=== PATIENT | male | born 1960 | race Caucasian/White ===

== ENCOUNTER → 2017-03-06 | Outpatient (CLI) | payer BC ==
[~2017-03-06] MED LIST: ACC10 PO; ACETA; ASCAUNK PO; ASPCH81X PO; ATOR-22 PO; CLC100 PO; CMD2 PO; CYCL10TA6 PO; FISHOIL PO; FLXUNK PO; GABA-112 PO; GLC/500 PO; GLCSR500 PO; GLIM2TAB2 PO; HYDC25 PO; HYDR-4380 PO; HYDR12.55 PO; HYDROCO; MULT-506 PO; NAPR-1169 PO; NATE120T PO; OMEG1CAP71 PO; PRLSR20 PO; QUIN40TA18 PO; SITA100T3 PO; STARLIX PO; VERA240C2 PO; VERA240T20 PO; ZINC PO; ZINC1TAB PO
== END | disposition home or self-care (01) ==
LOC: C.RDSM 13:55
PROVIDERS: ATTEND Physical Medicine & Rehabilitation Sports Medicine
DX: M19.011 Primary osteoarthritis, right shoulder (principal); M25.561 Pain in right knee; M54.5 Low back pain

== ENCOUNTER → 2017-03-30 | Day surgery (SDC) | payer BC ==
[2017-03-17 10:31] VITALS: Ht 177.8 cm; Wt 109.1 kg
[~2017-03-30] VITALS: Ht 177.8 cm; Wt 109.1 kg
[~2017-03-30] MED LIST changes: -ACC10 PO; -ACETA; -CMD2 PO; -FISHOIL PO; -FLXUNK PO; -GLCSR500 PO; -HYDC25 PO; -HYDROCO; +IOPAMIDOL INJ 61% 15 ML VIAL ONE; +LIDOCAINE HCL 1% MPF 5 ML VIAL ONE; -NATE120T PO; +SODIUM CHLORIDE 0.9% INJ 10 ML VIAL ONE; -STARLIX PO; -VERA240T20 PO; -ZINC PO
--- NOTE | 2017-03-30 14:50 | History & Physical Bridge - SC ---
H&P Re-Evaluation Bridge Note: I have examined the patient, reviewed the History & Physical and in the interval since the performance of the History & Physical I have noted the following changes of clinical significance: No changes noted
[2017-03-30 15:16] VITALS: TEMP 37
--- NOTE | 2017-03-30 15:17 | Discharge Instructions ---
Discharge Instructions Date of Service Mar 30, 2017. Visit Reason for Visit: Lumbar Radiculopathy Discharge Discharge Diagnosis / Problem: left leg pain Discharge Goals Goal(s): Decrease discomfort, Improve function Medications Stopped Medications Name(s): aspirin and naproxen stopped. last dose on monday. Activity Recommendations Activity Limitations: resume your previous activity Anesthesia . Post Anesthesia Instructions: If you have had General Anesthesia or IV Sedation: * Do not drive today. * Resume driving when surgeon permits. * Do not make important decisions or sign legal documents today. * Call surgeon for: 1. Temperature elevations greater than 101 degrees F. 2. Uncontrollable pain. 3. Excessive bleeding. 4. Persistent nausea and vomiting. 5. Medication intolerance (nausea, vomiting or rash). * For nausea and vomiting use only clear liquids such as: tea, soda, bouillon until nausea subsides, then gradually increase diet as tolerated. * If you have any concerns or questions, call your surgeon's office. If physician is unavailable and it is an emergency, call 911 or go to the nearest emergency room. . Diet Recommendations Recommended Home Diet: resume previous diet Procedures Procedures Performed: Lumbar Epidural Steroid Injection Pending Studies Studies pending at discharge: no Medical Emergencies . Who to Call and When: Medical Emergencies: If at any time you feel your situation is an emergency, please call 911 immediately. . Non-Emergent Contact Non-Emergency issues call your: Specialist . . "Provider Documentation" section prepared by Rigoberto Chow. .
[2017-03-30 15:29] VITALS: BP 144/88; PULSE 71; O2SAT 97
--- NOTE | 2017-03-30 16:46 | OPERATIVE REPORT ---
DATE OF OPERATION: 03/30/2017 PREOPERATIVE DIAGNOSIS: L5-S1 foraminal stenosis with left lower extremity radiculopathy. POSTOPERATIVE DIAGNOSIS: Same. PROCEDURE: Left paramedian L5-S1 intralaminar epidural steroid injection under fluoroscopic guidance. INDICATIONS: The patient is a 56-year-old white male who has presented with a longstanding history of low back pain with recent exacerbation over a few months that has radiating down the left lower extremity following a classic radiculopathy. He has MRI imaging that reveals stenosis foraminally at L5-S1 and he presents today for an epidural injection to provide him with relief of ongoing radicular complaints. He does note that he was also started on gabapentin at the initial evaluation and this has helped his pain 30%-40%. PHYSICAL EXAMINATION: Pleasant male seated comfortably in no apparent distress. He has intact sensation distally. Negative seated straight leg raise on the right and positive on the left. He is without any focal weakness. CONSENT: Verbal and written consent was obtained from the patient. Risks and benefits were reviewed. Risks include, but are not limited to epidural hematoma, epidural abscess, allergic reaction, and dural puncture. The patient wishes to proceed. DESCRIPTION OF PROCEDURE: The patient was taken back to the special procedures room of the [facility], where he was maintained in a prone position. Backside was cleansed with Betadine x3 and a dry sterile dressing was applied. Fluoroscope was used to identify the L5-S1 intralaminar space. Overlying skin on the left side was anesthetized with 4 mL of lidocaine 1% with a 25-gauge 1.5-inch needle. A 22-gauge 4-1/4 inch Tuohy needle was then directed down towards the intralaminar space. It was advanced under lateral fluoroscopic guidance and loss of resistance was noted at a depth of just over 9 cm. Isovue-300 contrast 1 mL was injected, in which demonstrated epidural uptake pattern, which was confirmed with both AP and lateral views. He then underwent injection of Depo-Medrol 40 mg and 4 mL of preservative free sodium chloride, which caused a transient reproduction of familiar radicular sensation, which was transient down the leg. DISPOSITION: 1. The patient was taken out into the recovery area, where he will be discharged home once discharge criteria have been met. 2. Follow up in the [facility] office in 2-4 weeks. I attest to the content of the Intraoperative Record and any orders documented therein. Any exception s are noted below.
== END | disposition home or self-care (01) ==
LOC: X.SURG 13:59
PROVIDERS: ATTEND Physical Medicine & Rehabilitation
DX: M48.07 Spinal stenosis, lumbosacral region (principal)

== ENCOUNTER → 2017-11-13 | Outpatient (CLI) | payer BC ==
[~2017-11-13] MED LIST changes: -IOPAMIDOL INJ 61% 15 ML VIAL ONE; -LIDOCAINE HCL 1% MPF 5 ML VIAL ONE; -SODIUM CHLORIDE 0.9% INJ 10 ML VIAL ONE
== END | disposition home or self-care (01) ==
LOC: C.RDSM 14:47
PROVIDERS: ATTEND Physical Medicine & Rehabilitation Sports Medicine
DX: M19.011 Primary osteoarthritis, right shoulder (principal)

== ENCOUNTER 2019-04-17 06:16 | Inpatient (IN) ==
--- NOTE | 2019-03-25 14:17 | XRay Report ---
XR chest Pre-admission PA/Lat CLINICAL HISTORY: Preoperative evaluation. COMPARISON STUDY: Chest radiograph May 16, 2012. FINDINGS: Lung volumes are normal. There is no pneumothorax or pleural effusion. There is no consolid ation to suggest pneumonia. Minimal left basilar opacity is unchanged since exam of May 16, 2012 an d may reflect atelectasis or epicardial fat pad. Cardiac size is normal. No evidence for pulmonary ed carlos. IMPRESSION: No acute cardiopulmonary findings. Electronically signed by: Ck Christiansen M.D. 03/25/2019 2:16 PM
[2019-03-25 14:21] LABS: Basophils # (auto) 0.03 K/uL (0-0.2); Basophils % (auto) 0.3 %; Eosinophils % (auto) 4.3 %; Hematocrit (blood only) 41.3 % (42-52); Hemoglobin 13.9 g/dL (14.0-18.0); Immature Granulocytes # (auto) 0.03 K/uL (0.00-0.02); Immature Granulocytes % (auto) 0.3 %; Lymphocytes # (auto) 2.85 K/uL (1.2-3.4); Mean Corpuscular Hgb Conc 33.7 g/dL (32-36); Mean Corpuscular Volume 90.2 fL (80-100); Mean Platelet Volume 9.9 fL (7.4-10.4); Monocytes # (auto) 0.66 K/uL (0.11-0.59); Monocytes % (auto) 7.2 %; Neutrophils # (auto) 5.23 K/uL (1.4-6.5); Neutrophils % (auto) 56.9 %; Platelet Count 291 K/uL (130-400); RDW Coefficient of Variation 13.5 % (11.5-14.5); RDW Standard Deviation 44.4 fL (36.4-46.3); Red Blood Count 4.58 M/uL (4.7-6.1)
[2019-03-25 14:36] LABS: Appearance Urine Clear (Clear); Bacteria Urine Automated Negative (Negative); Bilirubin Urine Negative (Negative); Blood Urine Negative (Negative); Color Urine Dark Yellow; Glucose Urine UA Negative (Negative); Ketones Urine Negative (Negative); Leukocyte Esterase Urine Negative (Negative); Nitrite Urine Negative (Negative); Protein Urine Trace (Negative); RBC Urine Automated 0-4 /hpf (0-4); Specific Gravity Urine 1.031 (1.000-1.030); Urobilinogen Urine Negative (Negative)
[2019-03-25 14:42] LABS: INR 1.1 (0.9-1.1); Partial Thromboplastin Ratio 0.9; Partial Thromboplastin Time 25.3 Seconds (21.0-31.0); Prothrombin Time 10.8 Seconds (9.0-12.0)
[2019-03-25 16:27] LABS: BUN Creatinine Ratio 22.6 (10-20); Calcium 8.8 mg/dl (8.5-10.1); Creatinine Clr Calc Pharmacy 101.2 ml/min; Est GFR (African American) 93.9
--- NOTE | 2019-03-27 11:59 | Anesthesiology Consultation ---
Date of Service March 27, 2019 Assessment & Plan (1) Encounter for pre-operative examination: - No previous anesthesia records w/ intubation Chart Review Chart Review: Acceptable Risk for Surgery and Patient seen in Pre Admission Carey ting Consults Requested medical (Dr. Munoz) Patient had a PCP clearance request form filled out by PCP. Per this form, dated 04/01/19, patient is medically cleared for surgery. Per PCP note from that visit, "The patient is medically stable for his proposed procedure." Teaching & Discussion Pre-Anesthesia Teaching/Discussion Notes: Instructed NPO after midnight before surgery, except medications with 15 cc of water. Medication instructions provided according to the PAT guidelines. History Surgery Operation Date: 04/17/19 07:00 Proposed Procedures p Left Total Knee Arthroplasty - Shivam Tolentino MD Height/Weight Height: 5 ft 11 in Weight: 114.2 kg Allergies Allergy/AdvReac Type Severity Reaction Status Date / Time cephalexin Allergy Unknown hives Verified 03/22/19 13:11 Medications Home Medications Medication Instructions Recorded Confirmed Last Taken Januvia 100 mg PO QAM 01/24/19 03/22/19 01/28/19 09:00 ascorbic acid (vitamin C) [Vitamin 1,000 mg PO BID 01/24/19 03/22/19 01/28/19 09:00 C] aspirin 81 mg PO BID 01/24/19 03/22/19 01/24/19 atorvastatin 20 mg PO HS 01/24/19 03/22/19 01/28/19 09:00 cyclobenzaprine 10 mg PO TID PRN 01/24/19 03/22/19 01/28/19 09:00 docusate sodium 100 mg PO BID 01/24/19 03/22/19 01/28/19 09:00 gabapentin 300 mg PO TID 01/24/19 03/22/19 01/28/19 09:00 glimepiride 4 mg PO QAM 01/24/19 03/22/19 01/28/19 09:00 hydrochlorothiazide 12.5 mg PO QAM 01/24/19 03/22/19 01/28/19 09:00 hydrocodone-acetaminophen 1 tab PO Q6H PRN 01/24/19 03/22/19 01/28/19 09:00 metformin 1,000 mg PO BID 01/24/19 03/22/19 01/28/19 09:00 multivitamin 1 tab PO QAM 01/24/19 03/22/19 01/28/19 09:00 naproxen 500 mg PO BID PRN 01/24/19 03/22/19 01/24/19 omega 3,6,9 combination no.7 1 tab PO BID 01/24/19 03/22/19 01/28/19 09:00 omeprazole 20 mg PO QAM 01/24/19 03/22/19 01/28/19 09:00 quinapril 40 mg PO QAM 01/24/19 03/22/19 01/28/19 09:00 verapamil 240 mg PO QAM 01/24/19 03/22/19 01/28/19 09:00 zinc gluconate 50 mg PO HS 01/24/19 03/22/19 01/27/19 Victoza 2-Yvan 1.2 mg SUBDERMAL DAILY 01/28/19 03/22/19 01/28/19 09:00 Exercise / Class Metabolic Activity III < 4 Walking/Shop/Light housework (Walking/Shop/Light housework (Does do stretches every day). Light carpentry work occasionally. Can climb stairs with difficulty. Denies CP or SOB.) Past Anesthesia History No Hx of Anesthesia Complications and No Family Hx of Anesthesia Complications History of PONV No Hx of PONV and No Hx of Motion Sickness Social History Smoking Status: Never smoker Do You Dip or Chew Tobacco: Yes (1 can per day x 30 years (Advised)) Hx Alcohol Use: No Hx Substance Use: No Review of Systems Patient denies chest pain, shortness of breath, dyspnea on exertion, joint pain, reflux, cough, wheezing, palpitations. +Joint Pain (Back, Knee, Hips, Legs) +Acid Reflux (Controlled with omeprazole) Physical Exam Vital Signs BP: 126/80 P: 59 R: 16 T: 98.2 SPO2: 96% on RA Constitutional + obese ENMT Thyromental Distance: > or= 3.5 Finger Breadths (4) Mallampati Class: II Mouth / Teeth: 1. 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 Neck normal visual inspection and trachea midline Respiratory normal respiratory effort Auscultation: lungs clear to auscultation bilaterally Cardiovascular Rate/Rhythm: regular rate and regular rhythm Heart Sounds: no murmur Vessels: no carotid bruit Neurologic moves all extremities Psychiatric Orientation: alert and oriented x 3 Testing Laboratory Results 03/25/19 13:16 03/25/19 13:16 03/25/19 03/25/19 03/25/19 13:16 13:16 13:16 PT 10.8 INR 1.1 APTT 25.3 Urine Color Dark Yellow Urine Appearance Clear Urine pH 5.0 Ur Specific [place] 1.031 H Urine Protein Trace H Urine Glucose (UA) Negative Urine Ketones Negative Urine Nitrite Negative Ur Leukocyte Esterase Negative Urine WBC (Auto) 1-5 Urine RBC (Auto) 0-4 U Hyaline Cast (Auto) 1-5 U Epithel Cells (Auto) 5-10 H Urine Bacteria (Auto) Negative Blood Type A Positive Antibody Screen NEGATIVE HgBA1C - 8.3 (01/21/19 at [facility]) Electrocardiogram Date: 03/25/19 Findings: + SB @ (52) and + no change from (05/16/12) Chest X-Ray Date: 03/25/19 Findings: + NAD FINDINGS: Lung volumes are normal. There is no pneumothorax or pleural effusion. There is no consolidation to suggest pneumonia. Minimal left basilar opacity is unchanged since exam of May 16, 2012 and may reflect atelectasis or epicardial fat pad. Cardiac size is normal. No evidence for pulmonary edema. IMPRESSION: No acute cardiopulmonary findings.
--- NOTE | 2019-04-02 19:38 | History and Physical Report ---
DATE OF ADMISSION: 04/17/[address] Tolentino. CHIEF COMPLAINT: Left knee pain. HISTORY OF PRESENT ILLNESS: This 58-year-old white male presents to the office with complaints of left knee pain for several years. It has become worse with time. He notes no loss of motion. He states the pain is worse with weightbearing. It is affecting his ADLs. Occasional night pain. He recently went on a trip to [place] and was able to get around reasonably well but it did prevent him from doing some activities. He denies any instability. No effusions. He elects to proceed with left total knee arthroplasty in hopes of alleviating his pain. Preoperative imaging has been obtained. He has a history of right total hip arthroplasty and continues to do well with that. He also has a right knee replacement with good results. PAST MEDICAL HISTORY: Significant for hypertension, type 2 diabetes, elevated cholesterol, DJD, chronic low back pain, obesity, and kidney stones. 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 ALLERGIES: KNOWN ALLERGY TO KEFLEX. SOCIAL HISTORY: The patient is . No tobacco use, no ETOH use. Retired. CURRENT MEDICATIONS: Colace 100 mg p.o. daily p.r.n., cyclobenzaprine 10 mg p.o. b.i.d., gabapentin 400 mg p.o. t.i.d., HCTZ 12.5 mg p.o. daily, [place] 7.5 mg p.o. q.i.d. p.r.n., omeprazole 20 mg p.o. daily, scopolamine patch q. 72 hours p.r.n., Victoza 18 mg/3 mL subcutaneous solution, Voltaren 1% topical gel q.i.d. p.r.n. FAMILY HISTORY: Significant for heart disease, otherwise unremarkable. REVIEW OF SYSTEMS: A total of 10 systems are reviewed and are significant only for above stated conditions. PHYSICAL EXAMINATION: GENERAL: Well-developed, well-nourished middle aged obese white male in no acute distress. Sitting on a bed. Alert and oriented. SKIN: Warm and dry with good turgor. No rashes or lesions. HEENT: Normocephalic, atraumatic. Eyes: PERRLA, EOMI. Nares patent bilaterally without turbinate enlargement. Oropharynx without erythema or exudate. No lesions noted. Uvula midline. Oral mucosa moist. Partial upper denture plate noted. HEART: RRR. No MGR. LUNGS: Clear to auscultation bilaterally. No crackles, rhonchi or wheezing. Good air movement. ABDOMEN: Obese. Bowel sounds present x4, soft, nontender. No organomegaly. No masses. MUSCULOSKELETAL: Left knee has no obvious asymmetry or deformity. He lacks a few degrees of terminal extension. Flexion to greater than 100 degrees. Strength is 5/5 with good quad tone. There is focal discomfort with palpation over the medial and lateral joint lines. No peripatellar discomfort today. Varus stance. Stable collateral ligaments. No defect in the patellar tendon or quadriceps tendon. He is able to do a straight leg raise. Ambulatory with an antalgic gait using his cane. NEUROLOGIC: Cranial nerves II through XII are intact. Gross sensation is intact across both lower extremities by soft touch. Peripheral pulses are 2+. DATA: Radiographic imaging previously obtained in December shows a well fixed, well aligned knee replacement on the right. Advanced medial compartment degenerative joint disease on the left with varus positioning. Periarticular osteophytes and subchondral sclerosis are also evident. IMPRESSION: Left knee end-stage degenerative joint disease. PLAN: Postoperative prescriptions for Percocet and Coumadin will be provided at discharge from the hospital. Anticipate discharge to home with home health services. Preoperative lab work, EKG, and chest x-ray have been ordered. Medical clearance has been requested from his PCP, Dr. Munoz. The patient already has crutches and a cane. He also has a walker. Informed written consent will be obtained on the morning of surgery. WHITNEY
[~2019-04-17 06:16] MED LIST changes: -ASCAUNK PO; -ASPCH81X PO; -ATOR-22 PO; -CLC100 PO; -CYCL10TA6 PO; -GABA-112 PO; -GLC/500 PO; -GLIM2TAB2 PO; -HYDR-4380 PO; -HYDR12.55 PO; +LR 500ML BOLUS, THEN 15ML/HR IV SCH; +LR 60ML/HR IV SCH; -MULT-506 PO; -NAPR-1169 PO; -OMEG1CAP71 PO; -PRLSR20 PO; -QUIN40TA18 PO; +ROPIVACAINE 0.5% HCL/PF 150 MG, BUPIVACAINE 0.5% MPF 30 ML, EPINEPHrine 0.15 MG, Ketoro... INFIL SCH; +SCOPOLAMINE 1.5 MG TDSY TD SCH; -SITA100T3 PO; +TRANEXAMIC ACID 1,000 MG **IV Pre-op IV SCH; +VANCOMYCIN HCL 1,750 MG in SODIUM CHLORIDE 0.9% 500 ML IV SCH; -VERA240C2 PO; -ZINC1TAB PO
[2019-04-17] MEDS ORDERED: BUPIVACAINE 0.5 % 5 MG/1 ML PF 10ML VIAL ONE (06:32)
[2019-04-17] MEDS ORDERED: ROPIVACAINE 0.5% 5 MG/ML 30 ML VIAL ONE (06:32)
--- NOTE | 2019-04-17 06:36 | History & Physical Bridge Note ---
Date of Service April 17, 2019 History & Physical Bridge Note I have examined the patient, reviewed the History & Physical and in the interval since the performance of the History & Physical I have noted the following changes of clinical significance:consent obtained. no changes noted
[2019-04-17] MEDS ORDERED: MIDAZOLAM HCL 1 MG/ML 2ML VIAL ONE (08:35)
[2019-04-17] MEDS ORDERED: ORTHO JOINT ANESTHETIC ONE (08:38)
[2019-04-17] MEDS ORDERED: fentaNYL citrate 100 MCG/2 ML VIAL ONE ×2 (10:11)
[2019-04-17] MEDS ORDERED: VASOPRESSIN 20 UNIT/ML VIAL ONE (10:12)
[2019-04-17] MEDS ORDERED: ONDANSETRON INJ 2 MG/ML 2 ML VIAL ONE (10:12)
[2019-04-17] MEDS ORDERED: PHENYLEPHRINE 100MCG/ML 5ML SYR ONE (10:12)
[2019-04-17] MEDS ORDERED: PROPOFOL IV EMULSION 10 MG/ML 20 ML VIAL IV ONE (10:12)
[2019-04-17] MEDS ORDERED: ePHEDrine sulfate 50 MG/ML SYR ONE (10:12)
[2019-04-17] MEDS ORDERED: ePHEDrine sulfate 50 MG/ML AMP ONE (10:12)
[2019-04-17] MEDS ORDERED: KETOROLAC 30 MG/ML VIAL IV PRN (10:25)
[2019-04-17] MEDS ORDERED: ATROPINE SULFATE 0.1 MG/ML 10ML SYR IV PRN (10:25)
[2019-04-17] MEDS ORDERED: HYDROmorphone INJ 1 MG/ML SYRINGE IV PRN (10:25)
[2019-04-17] MEDS ORDERED: ePHEDrine sulfate 50 MG/ML AMP IV PRN (10:25)
[2019-04-17] MEDS ORDERED: ONDANSETRON INJ 2 MG/ML 2 ML VIAL IV PRN ×2 (10:25→11:58)
--- NOTE | 2019-04-17 10:28 | Post Operative Brief Note ---
Immediate Post Op Note v1 Date of Surgery April 17, 2019 Pre & Post Diagnosis Operation Date: 04/17/19 08:50 Pre-Op Diagnosis: Left Knee Degenerative Joint Disease Post-Op Diagnosis: Left Knee Degenerative Joint Disease Procedure Operation Date: 04/17/19 08:50 Actual Procedures p Left Total Knee Arthroplasty(Left) - Shivam Tolentino MD Surgeon Shivam Tolentino MD Employment Training Specialist [facility] Estimated Blood Loss 100 Findings Consistent with Post-Op Diagnosis
--- NOTE | 2019-04-17 10:36 | Operative Report ---
Post Operative Report Pre & Post Diagnosis Operation Date: 04/17/19 08:50 Pre-Op Diagnosis: Left Knee Degenerative Joint Disease Post-Op Diagnosis: Left Knee Degenerative Joint Disease Procedure Operation Date: 04/17/19 08:50 Actual Procedures p Left Total Knee Arthroplasty(Left) - Shivam Tolentino MD Surgeon SAHIL Tolentino MD Ophthalmology Assistant mechelle Estimated Blood Loss 100 Findings Consistent with Post-Op Diagnosis Specimens see operative report Drains none Complications none Disposition Accompanied Patient To Recovery: Yes Disposition: Recovery Room Indications This 59-year-old white male presented to the office with complaints of intractable left knee pain. He had tried conservative care measures without improvement. He previously had a right total knee arthroplasty and has done well with that. He elected to proceed with the same on the left. Preoperative imaging has been obtained. Description of Procedure Patient was administered a spinal anesthetic and then taken to the operating room where he was given sedation. He was prepped and draped in the usual sterile fashion. Please see Dr. Tolentino's operative report for specifics of the procedure. I was present for the entire case from initial patient positioning through final wound closure. Assistance was provided in tissue retraction, hemostasis, trial implant placement, final implant placement, and final wound closure. Patient was taken to the recovery room in satisfactory condition. I attest to the content of the Intraoperative Record and any orders documented therein. Any exceptions are noted below.
--- NOTE | 2019-04-17 10:39 | Operative Report ---
DATE OF OPERATION: 04/17/2019 SURGEON: Shivam Tolentino MD PHYSICIAN SPECIALIST: Malik Joyner PA-C. No resident or fellow available. PREOPERATIVE DIAGNOSIS: Osteoarthritis with varus deformity, left knee. POSTOPERATIVE DIAGNOSIS: Osteoarthritis with varus deformity, left knee. OPERATION PERFORMED: Cemented left total knee replacement. PERIOPERATIVE SITUATION: Medically cleared male who has had intractable knee pain, has failed conservative management for well over a decade. At this point in time, wants to proceed with surgical treatment, his right knee done about a decade ago. He understands the risks and consequences. DESCRIPTION OF PROCEDURE: The patient appropriately identified, site verified, consent verified. Antibiotics confirmed as being given. The left lower extremity was prepped and draped in the usual routine fashion. Tourniquet inflated to 300 mmHg after exsanguination of the limb with a rubber Esmarch bandage for a total of 49 minutes. Midline exposure was utilized. Parapatellar arthrotomy performed. Synovectomy completed, osteophytes resected. Distal femur then entered. Cruciates resected. Tibia subluxated. Menisci resected. Distal femur cut 12 mm, proximal tibia 4 mm, the extension gap was excellent. Femur was then sized to a 4, appropriate cutting block applied and the anterior and posterior condylar and chamfer cuts made. The flexion gap was excellent. The box cut was then made. The size 4 narrow fit well. The tibia was then broached and reamed to a size 4 and trial spacing between a 10 and a 12.5. The 10 was picked due to better extension, but no change in the flexion gap instability. The patella was then sized to a 41, it was resected leaving 16 mm, the seating holes made and the trial tracked well. Orthomix was then injected into the knee, prior to that, 2 injections were placed posteriorly, prior to inserting the implants. The wound was then irrigated with Betadine and Pulsavac. The permanents were then cemented into position, the tibia followed by femur followed by patella, after 12 minutes, the tourniquet deflated. Minor bleeding points controlled with electrocautery. After 14 minutes, the knee flexed. No cement removal was required. The knee was irrigated with Betadine and then the knee reduced with the permanent spacer and then closed with #2 Vicryl, 2-0 Vicryl and stainless steel clips. Appropriate dressing applied. The patient transferred to recovery room in satisfactory condition, having tolerated the procedure well. Pathology pending on bone. DVT prophylaxis with Coumadin. ESTIMATED BLOOD LOSS: 100 mL. SUMMARY OF IMPLANTS: Size 4 posterior cruciate substituting narrow femur, size 4 rotating tibial platform tray, size 4 spacer, 10 mm thick posterior cruciate substituting oval domed 3 pegged patella size 41 and 2 bags of Pal[place]os G cement. I attest to the content of the Intraoperative Record and any orders documented therein. Any exception s are noted below.
[2019-04-17] MEDS ORDERED: NovoLIN-R INSULIN PER UNIT CHARGE ONE (10:42)
--- NOTE | 2019-04-17 10:58 | XRay Report ---
XR knee LT 2V routine HISTORY: 59 years-old Male Surgical Post Op left knee total joint arthroplasty. History of degenerat ajay joint disease. COMPARISON: [Knee radiographs 06/30/2015 TECHNIQUE: 2 views of the left knee FINDINGS: Left knee total joint arthroplasty and patella resurfacing demonstrates satisfactory alignment. Anter ior midline skin yasmin are noted along with expected postsurgical soft tissue swelling and deep tis vicente air with surgical drainage catheter. No acute fracture or retained foreign body. IMPRESSION: Satisfactory alignment of left knee total joint arthroplasty. The above report was generated using voice recognition software. It may contain grammatical, syntax o r spelling errors. Electronically signed by: Jayme Walsh M.D. 04/17/2019 10:56 AM
--- NOTE | 2019-04-17 11:02 | Orthopedic Progress Note ---
Date of Service April 17, 2019 Subjective Patient patient is doing well has no major issues. Denies chest pain shortness of breath fever chills nausea vomiting headache. Has some shoulder pain but he has arthritis there. Physical Exam Physical Exam: Neurovascular check is limited by spinal femoral nerve history section. Knee is located postop x-rays look excellent. Results & Data Vital Signs (Past 12 Hours) Vital Signs Temp Pulse Resp BP Pulse Ox 04/17/19 10:55 81 15 113/61 97 04/17/19 10:45 84 16 132/88 98 04/17/19 10:35 36.5 C 81 14 101/82 96 04/17/19 06:46 37.1 C 79 16 142/108 H 95
[2019-04-17] MEDS ORDERED: NovoLIN-R INSULIN PER UNIT CHARGE IV STA (11:05)
[2019-04-17] MEDS ORDERED: METOCLOPRAMIDE HCL INJ 5 MG/ML 2 ML VIAL IV PRN (11:58)
[2019-04-17] MEDS ORDERED: HYDROmorphone INJ 0.5 MG/0.5 ML SYR IV PRN (11:58)
[2019-04-17] MEDS ORDERED: VANCOMYCIN CONSULT ACTIVE PRN (11:58)
[2019-04-17] MEDS ORDERED: CYCLOBENZAPRINE HCL 10 MG TAB PO PRN (11:58)
[2019-04-17] MEDS ORDERED: NALOXONE HCL 0.4 MG/1 ML VIAL/CARP IV PRN (11:58)
[2019-04-17] MEDS ORDERED: MAGNESIUM HYDROXIDE SUSP 30 ML UDC PO PRN (11:58)
[2019-04-17] MEDS ORDERED: TAMSULOSIN HCL 0.4 MG CAP PO PRN (11:58)
[2019-04-17] MEDS ORDERED: PHARMACY GLYCEMIC MGMT CONSULT STA (11:58)
[2019-04-17] MEDS ORDERED: DiphenhydrAMINE HCL 50 MG/ML VIAL IV PRN (11:58)
[2019-04-17] MEDS ORDERED: ALUMINUM/MAGNESIUM SUSP 30 ML UDC PO PRN (11:58)
[2019-04-17] MEDS ORDERED: BISACODYL 10 MG SUPP PR PRN (11:58)
--- NOTE | 2019-04-17 11:58 | Anesthesiology Progress Note ---
Date of Service April 17, 2019 Anesthesia Post Procedure Vital Signs Vital Signs: Temp Pulse Resp BP Pulse Ox 04/17/19 11:17 37.3 C 83 17 119/68 99 04/17/19 11:05 82 18 123/63 97 04/17/19 10:55 81 15 113/61 97 04/17/19 10:45 84 16 132/88 98 04/17/19 10:35 36.5 C 81 14 101/82 96 04/17/19 06:46 37.1 C 79 16 142/108 H 95 Pain Intensity Generalized: Pain Intensity: 2 Transfer of Care Handoff Completed per policy Notes Mental Status: alert / awake / arousable Patient Amnestic to Procedure: Yes Nausea / Vomiting: adequately controlled Pain: adequately controlled Airway Patency, RR, SpO2: stable & adequate BP & HR: stable & adequate Hydration State: stable & adequate Neuraxial Anesthesia: was administered and sensory block is resolving Anesthetic Complications: no major complications apparent
[2019-04-17] MEDS: SODIUM CHLORIDE 0.9% 1000ML 1,000 ML IV SCH ×2 (12:13→20:45)
[2019-04-17] MEDS: INSULIN ASPART 100 UNITS/ML 3 ML PEN SC SCH ×3 (12:50→20:49)
[2019-04-17] MEDS ORDERED: INSULIN HUMAN NPH SC STA (13:32)
[2019-04-17] MEDS ORDERED: GABAPENTIN 400 MG CAP PO STA (13:36)
[2019-04-17] MEDS ORDERED: PHARMACY GLYCEMIC MGMT CONSULT PRN (13:45)
--- NOTE | 2019-04-17 13:57 | Pharmacy Report ---
Glycemic Control Consultation - Date of Service April 17, 2019 - Scope Scope: Glycemic Pharmacist consulted by Dr Joyner on 04/17/19 for glycemic control and to write orders per [facility] inpatient glycemic control protocol - Objective Weight: 112 kg Accuchecks BSG (last 24hrs): 04/17/19 04/17/19 04/17/19 06:47 10:38 11:24 POC Glucose 212 H 286 H 249 H - Recent Pertinent Medications Outpatient Anti-diabetic Regimen: * Glimepiride, Metformin, Januvia, Victoza - Assessment & Plan Assessment & Plan: ASSESSMENT: * Mr. Shankar is a 59yo M unknown to the pharmacy glycemic service. He is POD: 0 L TKA. PMHx: consistent with DM-II, HLD, Obesity. He is maintained on PO medications as an outpt. I was not able to obtain an A1C, there is one ordered for tomorrow. He endorses an A1C >9% * No perioperative steroids were given. There is DXM 8mg IV X1 tomorrow with breakfast. Post-op BSGs >200. PLAN FOR INPATIENT GLYCEMIC CONTROL: * Holding outpatient oral diabetes medications * Basal insulin * NPH 25 units STAT. Then there will be an NPH scale for HS tonight, please see MAR for further details. * Bolus insulin * NovoLog per scale ACHS or Q6hrs while NPO * Goal Range: Low 120 mg/dL - High 160 mg/dL * Correction Factor: 15 mg/dL/unit * Nutritional / Prandial insulin per carb ratio of 1 unit per 5 grams CHO consumed * Will add a 0000 check * Please note that the plan above was derived based on current level of insulin resistance and hospital stress. These recommendations are appropriate for inpatient admission only. Plan of care upon discharge will need to be reassessed to avoid potential outpatient hypo/hyperglycemia. Thank you.
[2019-04-17] MEDS ORDERED: GABAPENTIN 300 MG CAP PO SCH (14:00)
[2019-04-17] MEDS ORDERED: ORTHO WARFARIN NOMOGRAM SCH (14:00)
[2019-04-17] MEDS: ACETAMINOPHEN 500 MG TAB PO SCH ×2 (14:04→20:47)
[2019-04-17] MEDS: KETOROLAC 30 MG/ML VIAL IV SCH ×2 (14:09→20:04)
[2019-04-17] MEDS ORDERED: WARFARIN SOD 5 MG TAB PO SCH (16:00)
[2019-04-17] MEDS ORDERED: CHECK SCOPOLAMINE PATCH PLACEMENT SCH (16:00)
[2019-04-17] MEDS ORDERED: TRANEXAMIC ACID 1,000 MG in 0.9 % SODIUM CHLORIDE 100 ML IV SCH (17:00)
[2019-04-17] MEDS: FERROUS GLUCONATE 324 MG TAB PO SCH (17:43)
[2019-04-17] MEDS ORDERED: VANCOMYCIN HCL 1,750 MG in SODIUM CHLORIDE 0.9% 500 ML IV SCH (18:00)
[2019-04-17] MEDS: DOCUSATE SODIUM 100 MG CAP PO SCH (20:05)
[2019-04-17] MEDS: GABAPENTIN 400 MG CAP PO SCH (20:06)
[2019-04-17] MEDS: ASPIRIN 81 MG ECTAB PO SCH (20:07)
[2019-04-17] MEDS ORDERED: DOCUSATE SODIUM 100 MG CAP PO SCH (21:00)
[2019-04-17] MEDS ORDERED: INSULIN HUMAN NPH SC ONE (21:00)
[2019-04-17] MEDS ORDERED: NON-FORMULARY MEDICATION (Zinc Gluconate 50 MG) PO SCH (21:00)
[2019-04-17] MEDS ORDERED: SENNA 8.6 MG TAB PO SCH (21:00)
[2019-04-17] MEDS ORDERED: ATORVASTATIN 20 MG TAB PO SCH (21:00)
[2019-04-17 22:29] VITALS: O2SAT 96
[2019-04-18] MEDS ORDERED: INSULIN ASPART 100 UNITS/ML 3 ML PEN SC ONE
[2019-04-18] MEDS: KETOROLAC 30 MG/ML VIAL IV SCH ×2 (01:42→07:57)
[2019-04-18] MEDS: OXYCODONE HCL IR 5 MG TAB (IMMEDIATE RELEASE) PO PRN ×2 (03:36→11:09)
[2019-04-18] MEDS: ACETAMINOPHEN 500 MG TAB PO SCH (06:23)
[2019-04-18 06:40] LABS: Hematocrit (blood only) 33.6 % (42-52); Hemoglobin 11.3 g/dL (14.0-18.0); Mean Corpuscular Hgb Conc 33.6 g/dL (32-36); Mean Corpuscular Volume 91.1 fL (80-100); Mean Platelet Volume 9.9 fL (7.4-10.4); Platelet Count 245 K/uL (130-400); RDW Coefficient of Variation 13.5 % (11.5-14.5); RDW Standard Deviation 44.9 fL (36.4-46.3); Red Blood Count 3.69 M/uL (4.7-6.1); White Blood Count 13.92 K/uL (4.8-10.8)
[2019-04-18 06:57] VITALS: BP 163/78; TEMP 98.4
[2019-04-18 07:13] LABS: BUN Creatinine Ratio 22.1 (10-20); Creatinine Clr Calc Pharmacy 81.9 ml/min; Est GFR (African American) 74.2; Potassium 4.6 mmol/L (3.5-5.1)
--- NOTE | 2019-04-18 07:27 | Progress Note ---
DATE: 04/18/2019 SUBJECTIVE: Postop day #1 status post left total knee replacement. The patient is doing well. Denies chest pain, shortness of breath, fever, chills, nausea, vomiting, or headache. OBJECTIVE: Vital signs are stable. He is afebrile. Neurovascular check femoral sciatic nerve is normal. Wound dressing is changed, clean, dry and intact. Can do straight leg raise. Flexes easily to 90 degrees. Hematocrit stable at 33.6. Glucose is in the mid 250 ranges. Calcium is normal. INR is pending. ASSESSMENT: Overall, doing well. Continue with postop care pathway. Discharge to home today. Coumadin dose per nomogram today. Discharge on 4 mg if INR is less than 1.5. Repeat INR on Monday. Case management arrangement.
[2019-04-18 07:28] LABS: INR 1.2 (0.9-1.1); Prothrombin Time 11.8 Seconds (9.0-12.0)
--- NOTE | 2019-04-18 07:30 | Discharge Summary ---
CHIEF COMPLAINT: Left knee pain. HISTORY OF PRESENT ILLNESS: The patient underwent elective left total knee replacement. Hospital course has been uneventful. He is mobilizing well. He has no major issues. Denies chest pain, shortness of breath, fever, chills, nausea, vomiting or headache. PAST MEDICAL HISTORY: Remarkable for hypertension, type 2 diabetes, elevated cholesterol, DJD, chronic low back pain, obesity and kidney stones. PAST SURGICAL HISTORY: Remarkable for knee replacement, bilateral knee arthroscopies, herniorrhaphy, sinus tumor resection, bowel surgery, right total hip replacement, carpal tunnel release. ALLERGIES: KEFLEX. SOCIAL HISTORY: Reveals he is . No tobacco or alcohol use. PREOPERATIVE MEDICATIONS: Include Colace, cyclobenzaprine, gabapentin, hydrochlorothiazide, Bradford, omeprazole, scopolamine patch, Victoza, Voltaren topical gel. He will discontinue the Voltaren topical gel around his knee, can use it elsewhere. He will be discharged on some Vicodin. Please see prescription. Discharge on Coumadin 4 mg. Keep INR 1.8-2.2. FAMILY HISTORY: Remarkable for heart disease, otherwise unremarkable. REVIEW OF SYSTEMS: Noncontributory. ASSESSMENT: Overall, doing well status post left total knee replacement, discharge to home today. Follow up in 2 weeks.
[2019-04-18] MEDS ORDERED: PERCOCET 5/325MG HOMEPACK PO ONE (07:37)
[2019-04-18] MEDS ORDERED: INSULIN HUMAN NPH SC SCH (08:00)
[2019-04-18] MEDS ORDERED: dexAMETHasone 8 MG in SYRINGE 0 ML IV SCH (08:00)
[2019-04-18] MEDS: GABAPENTIN 400 MG CAP PO SCH (08:50)
[2019-04-18] MEDS: ASPIRIN 81 MG ECTAB PO SCH (08:51)
[2019-04-18] MEDS: DOCUSATE SODIUM 100 MG CAP PO SCH (08:51)
[2019-04-18] MEDS: INSULIN ASPART 100 UNITS/ML 3 ML PEN SC SCH (08:55)
[2019-04-18] MEDS ORDERED: METFORMIN HCL 850 MG TAB PO SCH (09:00)
[2019-04-18] MEDS ORDERED: PANTOprazole 40 MG TAB PO SCH (09:00)
[2019-04-18] MEDS ORDERED: WARFARIN SOD 5 MG TAB PO SCH (09:00)
[2019-04-18] MEDS ORDERED: MULTIVITAMIN TAB PO SCH (09:00)
[2019-04-18] MEDS ORDERED: ENALAPRIL MALEATE 10 MG TAB PO SCH (09:00)
[2019-04-18] MEDS ORDERED: hydroCHLOROthiazide 25 MG TAB PO SCH (09:00)
[2019-04-18] MEDS ORDERED: GLIMEPIRIDE 2 MG TAB PO SCH (09:00)
[2019-04-18] MEDS ORDERED: VERAPAMIL HCL 240 MG TABCR PO SCH (09:00)
[2019-04-18] MEDS: FERROUS GLUCONATE 324 MG TAB PO SCH (09:01)
[2019-04-18 09:18] VITALS: PULSE 86
[2019-04-19 07:10] LABS: Estimated Average Glucose 226 mg/dl; Hemoglobin A1C 9.5 % (4.5-5.6)
== END 2019-04-18 11:30 | disposition home or self-care (01) | DRG 470 ==
LOC: ASU 06:16 → 3E 10:41
DX: Z96.651 Presence of right artificial knee joint; Z68.34 Body mass index [BMI] 34.0-34.9, adult; G89.29 Other chronic pain; E11.9 Type 2 diabetes mellitus without complications; I10 Essential (primary) hypertension; M17.12 Unilateral primary osteoarthritis, left knee; Z82.49 Family history of ischemic heart disease and other diseases of the circulatory system; E66.9 Obesity, unspecified

== ENCOUNTER 2023-03-14 05:20 | Observation (INO) ==
--- NOTE | 2023-02-09 14:11 | PAT Medication Instructions ---
Medication Instructions Date of Service February 09, 2023 Home Medications ascorbic acid (vitamin C) 1,000 mg tablet (Vitamin C) 1,000 mg PO BID aspirin 81 mg tablet,delayed release 81 mg PO BID atorvastatin 20 mg tablet 20 mg PO HS cyclobenzaprine 10 mg tablet 10 mg PO TID PRN Spasms docusate sodium 100 mg tablet 100 mg PO BID hydrochlorothiazide 12.5 mg capsule 12.5 mg PO QAM metformin 1,000 mg tablet 1,000 mg PO BID multivitamin 1 tab PO QAM omeprazole 20 mg capsule,delayed release 20 mg PO QAM verapamil 240 mg 24 hr capsule,extended release 240 mg PO QAM zinc gluconate 50 mg tablet 50 mg PO HS hydrocodone 7.5 mg-acetaminophen 300 mg tablet 1 tab PO TID PRN Pain celecoxib 200 mg capsule 200 mg PO BID PRN Pain gabapentin 400 mg capsule 400 mg PO TID insulin aspart U-100 100 unit/mL (3 mL) subcutaneous pen (Novolog FlexPen U-100 Insulin aspart) 20 unit subcut TID insulin glargine 100 unit/mL subcutaneous solution (Lantus U-100 Insulin) 35 unit subcut QAM benazepril 40 mg tablet 40 mg PO QAM ASK your surgeon for instructions celecoxib 200 mg capsule 200 mg PO BID PRN Pain ASK your prescriber and surgeon aspirin 81 mg tablet,delayed release 81 mg PO BID DO NOT take the morning of surgery ascorbic acid (vitamin C) 1,000 mg tablet (Vitamin C) 1,000 mg PO BID cyclobenzaprine 10 mg tablet 10 mg PO TID PRN Spasms docusate sodium 100 mg tablet 100 mg PO BID hydrochlorothiazide 12.5 mg capsule 12.5 mg PO QAM metformin 1,000 mg tablet 1,000 mg PO BID multivitamin 1 tab PO QAM insulin aspart U-100 100 unit/mL (3 mL) subcutaneous pen (Novolog FlexPen U-100 Insulin aspart) 20 unit subcut TID benazepril 40 mg tablet 40 mg PO QAM Take morning of surgery With a small sip of water, OTHERWISE NOTHING TO EAT OR DRINK AFTER MIDNIGHT: omeprazole 20 mg capsule,delayed release 20 mg PO QAM verapamil 240 mg 24 hr capsule,extended release 240 mg PO QAM hydrocodone 7.5 mg-acetaminophen 300 mg tablet 1 tab PO TID PRN Pain (if needed) gabapentin 400 mg capsule 400 mg PO TID Take evening before surgery ascorbic acid (vitamin C) 1,000 mg tablet (Vitamin C) 1,000 mg PO BID atorvastatin 20 mg tablet 20 mg PO HS cyclobenzaprine 10 mg tablet 10 mg PO TID PRN Spasms (if needed) docusate sodium 100 mg tablet 100 mg PO BID metformin 1,000 mg tablet 1,000 mg PO BID zinc gluconate 50 mg tablet 50 mg PO HS hydrocodone 7.5 mg-acetaminophen 300 mg tablet 1 tab PO TID PRN Pain (if needed) gabapentin 400 mg capsule 400 mg PO TID insulin aspart U-100 100 unit/mL (3 mL) subcutaneous pen (Novolog FlexPen U-100 Insulin aspart) 20 unit subcut TID Insulin Dependent Diabetic Patients * Test your blood sugar the morning of surgery * If Blood Sugar is GREATER THAN 150, take HALF of your regular dose of: insulin glargine 100 unit/mL subcutaneous solution (Lantus U-100 Insulin) take 17 units * If Blood Sugar is LESS THAN 150, DO NOT TAKE ANY: insulin glargine 100 unit/mL subcutaneous solution (Lantus U-100 Insulin) Other Notes If you have any questions please call us at [phone] or [phone] or [phone] or [phone]
--- NOTE | 2023-02-16 15:13 | Anesthesiology Consultation ---
Date of Service February 16, 2023 Assessment & Plan (1) Encounter for pre-operative examination: - Check BSG AM DOS - COVID screening: Per assessment on 02/16: No known COVID-19 positive contacts or current COVID-19 related symptoms. Travel screen negative. Patient vaccinated. At surgeon discretion if preop Covid testing being done. - Outpatient joint assessment: Pt currently scheduled for inpatient pathway. If surgeon requests review for outpatient joint pathway, patient is not recommended candidate for outpatient joint program from anesthesia standpoint. - PCP note (12/13/22): "YES" patient medically cleared for surgery Chart Review Chart Review: Acceptable Risk for Surgery and Patient seen in Pre Admission Testing Teaching & Discussion Pre-Anesthesia Teaching/Discussion Notes: Instructed NPO after midnight before surgery,except medications with 15 cc of water. Medication instructions provided according to the PAT guidelines. History Surgery Operation Date: 03/14/23 07:15 Proposed Procedures p Left Hip Arthroplasty - Shivam Tolentino MD Height/Weight Height: 5 ft 10 in Weight: 117.934 kg Allergies Allergy/AdvReac Type Severity Reaction Status Date / Time cephalexin Allergy Intermediate hives Verified 02/09/23 11:44 Medications Home Medications Medication Instructions Recorded Confirmed Last Taken ascorbic acid (vitamin C) 1,000 mg 1,000 mg PO BID 01/24/19 02/09/23 11/24/22 tablet (Vitamin C) aspirin 81 mg tablet,delayed 81 mg PO BID 01/24/19 02/09/23 06/16/20 release atorvastatin 20 mg tablet 20 mg PO HS 01/24/19 02/09/23 11/23/22 cyclobenzaprine 10 mg tablet 10 mg PO TID PRN Spasms 01/24/19 02/09/23 11/24/22 docusate sodium 100 mg tablet 100 mg PO BID 01/24/19 02/09/23 11/24/22 hydrochlorothiazide 12.5 mg capsule 12.5 mg PO QAM 01/24/19 02/09/23 11/24/22 metformin 1,000 mg tablet 1,000 mg PO BID 01/24/19 02/09/23 11/24/22 multivitamin 1 tab PO QAM 01/24/19 02/09/23 11/24/22 omeprazole 20 mg capsule,delayed 20 mg PO QAM 01/24/19 02/09/2311/24/23 release verapamil 240 mg 24 hr 240 mg PO QAM 01/24/19 02/09/23 11/24/22 capsule,extended release zinc gluconate 50 mg tablet 50 mg PO HS 01/24/19 02/09/23 11/23/22 hydrocodone 7.5 mg-acetaminophen 1 tab PO TID PRN Pain 09/02/20 02/09/23 11/24/22 300 mg tablet celecoxib 200 mg capsule 200 mg PO BID PRN Pain 11/22/22 02/09/23 11/24/22 gabapentin 400 mg capsule 400 mg PO TID 11/22/22 02/09/23 11/24/22 insulin aspart U-100 100 unit/mL 20 unit subcut TID 11/22/22 02/09/23 11/24/22 (3 mL) subcutaneous pen (Novolog FlexPen U-100 Insulin aspart) insulin glargine 100 unit/mL 35 unit subcut QAM 11/22/22 02/09/23 11/24/22 subcutaneous solution (Lantus U-100 Insulin) benazepril 40 mg tablet 40 mg PO QAM 02/09/23 02/09/23 Unknown Past Medical History Medical History Chronic back pain LLE (lumbar herniated discs with spinal stenosis) Diabetes mellitus, type 2 IDDM GERD (gastroesophageal reflux disease) History of COVID- Early 2021 History of intestinal obstruction 2/2 adhesions Hyperlipidemia Hypertension Obesity Osteoarthritis Exercise / Class Metabolic Activity III < 4 Walking/Shop/Light housework Past Family History Family History Brother Family history of diabetes mellitus Father Family history of diabetes mellitus Mother Family history of diabetes mellitus Past Surgical History Surgical History H/O umbilical hernia repair History of arthroscopic knee surgery Multiple History of carpal tunnel release R/L History of right hip replacement History of surgery 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") No ROM limitations per patient, does have implant issues opening or closing jaw - does have implant in place on left side of mouth due to opening in roof of mouth History of surgery lysis of abdominal adhesions History of total knee replacement R/L PONV (postoperative nausea and vomiting) Past Anesthesia History No Hx of Anesthesia Complications (except PONV) and No Family Hx of Anesthesia Complications History of PONV No Hx of Motion Sickness and History of PONV Social History Smoking Status: Never smoker tobacco type: smokeless tobacco Do You Dip or Chew Tobacco: Yes (Daily- advised none DOS) Hx Alcohol Use: No Hx Substance Use: No substance use type: does not use Review of Systems Patient denies chest pain, shortness of breath, reflux, cough, wheezing, palpitations. Physical Exam Vital Signs VITALS BP 133/82 P 59 TEMP 98.4 SP02 98%RA RESP 16 PHYSICAL Full neck and c-spine range of motion. Full TMJ range of motion. TMD 3 finger breaths Mallampati Score 1 Dentition: removable plate with teeth + plate for previous jaw surgery for sinus tumor resection (residual palate defect) Lungs: clear throughout to auscultation Cardiac: regular rate and rhythm, no murmurs noted Spine: normal Carotid arteries: negative bruit Extremities: no edema Lab Results Anesthesia Preop Results Results Anesthesia Widget: WBC 10.36 K/ul (4.8-10.8) 02/16/23 Hgb 13.7 g/dl (14.0-18.0) L 02/16/23 Hct 40.4 % (42.0-52.0) L 02/16/23 Plt 298 K/uL (130-400) 02/16/23 Na 138 mmol/L (136-145) 02/16/23 K 4.5 mmol/L (3.5-5.1) 02/16/23 Cl 105 mmol/L (98-107) 02/16/23 CO2 25 mmol/L (21-32) 02/16/23 BUN 27 mg/dl (6-23) H 02/16/23 Creat 1.11 mg/dl (0.6-1.4) 02/16/23 Glucose Level 198 mg/dl (70-99(Fasting)) H 02/16/23 PT 11.4 Seconds (9.0-12.0) 02/16/23 PTT 24.7 Seconds (21.0-31.0) 02/16/23 INR 1.0 (0.9-1.1) 02/16/23 HA1c 9.2 % (4.5-5.6) H 02/16/23 Urine Color Dark Yellow 02/16/23 Urine Appearance Clear (Clear) 02/16/23 Urine pH 5.0 (4.5-7.5) 02/16/23 Urine Specific [place] 1.029 (1.000-1.030) 02/16/23 Urine Protein 2+ (Negative) H 02/16/23 Urine Glucose (UA) Negative (Negative) 02/16/23 Urine Ketones Trace (Negative) H 02/16/23 Urine Blood Negative (Negative) 02/16/23 Urine Nitrite Negative (Negative) 02/16/23 Urine Bilirubin Negative (Negative) 02/16/23 Urine Urobilinogen Negative (Negative) 02/16/23 Urine Leukocyte Esterase Negative (Negative) 02/16/23 Urine WBC (Auto) 1-5 /hpf (0-5) 02/16/23 Urine RBC (Auto) 0-4 /hpf (0-4) 02/16/23 Urine Hyaline Casts (Auto) 5-10 /lpf (0-5) H 02/16/23 Urine Epithelial Cells (Auto) 10-20 /lpf (0-5) H 02/16/23 Urine Bacteria (Auto) Negative (Negative) 02/16/23 Blood Type A Positive 02/16/23 Antibody Screen NEGATIVE 02/16/23 Testing Laboratory Results Surgeon's office made aware of elevated A1C* Electrocardiogram Date: 02/17/23 NSR at 60bpm. Chest X-Ray Date: 02/16/23 FINDINGS: PA and lateral chest radiographs are compared to study dated 09/04/2020. The heart is enlarged. The pulmonary vasculature is noncongested. There is mild bibasilar scarring/atelectasis. Scattered calcified granulomas are observed. The lungs and pleural spaces are otherwise clear. There is no pneumothorax. The bony thorax appears intact. Arthritic change is seen in the shoulders and spine. IMPRESSION: Mild cardiomegaly with no active disease in the chest. COVID-19 Risk Screen Screening Information COVID-19 Screen Date: 02/16/23 Exposure 21 Days Family/Household +COVID Last 21 Days: No Exposure 10 Days Any COVID Exposure Last 10 Days: No Symptoms Last 10 Days Experienced COVID Sx Last 10 Days: No + COVID 0-90 Days COVID + in Last 0-90 Days: No
[~2023-03-14 05:20] MED LIST changes: -LR 500ML BOLUS, THEN 15ML/HR IV SCH; -LR 60ML/HR IV SCH; -ROPIVACAINE 0.5% HCL/PF 150 MG, BUPIVACAINE 0.5% MPF 30 ML, EPINEPHrine 0.15 MG, Ketoro... INFIL SCH; +ROPIVACAINE 0.5% HCL/PF 150 MG, BUPIVACAINE 0.75% MPF 20 ML, EPINEPHrine 0.15 MG, Ketor... INFIL SCH; -SCOPOLAMINE 1.5 MG TDSY TD SCH; -TRANEXAMIC ACID 1,000 MG **IV Pre-op IV SCH; -VANCOMYCIN HCL 1,750 MG in SODIUM CHLORIDE 0.9% 500 ML IV SCH
[2023-03-14] MEDS ORDERED: LR 60ML/HR IV SCH (06:00)
[2023-03-14] MEDS ORDERED: ROPIVACAINE 0.5% HCL/PF 150 MG, BUPIVACAINE 0.75% MPF 20 ML, EPINEPHrine 0.15 MG, Ketor... INFIL SCH (06:00)
[2023-03-14] MEDS ORDERED: TRANEXAMIC ACID 1,000 MG **IV Pre-op IV SCH (06:00)
[2023-03-14] MEDS ORDERED: VANCOMYCIN HCL 1,750 MG in SODIUM CHLORIDE 0.9% 500 ML IV SCH ×2 (06:00→18:45)
[2023-03-14] MEDS ORDERED: LR 500ML BOLUS, THEN 15ML/HR IV SCH (06:00)
[2023-03-14] MEDS ORDERED: BUPIVACAINE 0.5 % 5 MG/1 ML PF 10ML VIAL ONE (06:24)
--- NOTE | 2023-03-14 06:28 | History & Physical Bridge Note ---
Date of Service March 14, 2023 History & Physical Bridge Note I have examined the patient, reviewed the History & Physical and in the interval since the performance of the History & Physical I have noted the following changes of clinical significance: no changes noted
--- NOTE | 2023-03-14 06:29 | History & Physical Bridge Note ---
Date of Service March 14, 2023 History & Physical Bridge Note I have examined the patient, reviewed the History & Physical and in the interval since the performance of the History & Physical I have noted the following changes of clinical significance:consent obtained/site verified. no changes noted
[2023-03-14] MEDS ORDERED: ATROPINE SULFATE 0.1 MG/ML 10ML SYR IV PRN (06:32)
[2023-03-14] MEDS ORDERED: ONDANSETRON INJ 2 MG/ML 2 ML VIAL IV PRN ×2 (06:32→10:15)
[2023-03-14] MEDS ORDERED: ePHEDrine sulfate 50 MG/ML AMP IV PRN (06:32)
[2023-03-14] MEDS ORDERED: MIDAZOLAM HCL 1 MG/ML 2ML VIAL ONE (06:35)
[2023-03-14] MEDS ORDERED: fentaNYL citrate PF 100 MCG/2 ML VIAL ONE (06:53)
[2023-03-14] MEDS ORDERED: KETAMINE 50 MG/5 ML SYRINGE ONE (07:08)
[2023-03-14] MEDS ORDERED: LIDOCAINE 2% 2 ML VIAL/AMP(20MG/ML) INFIL ONE (07:19)
[2023-03-14] MEDS ORDERED: PROPOFOL IV EMULSION 10 MG/ML 20 ML VIAL IV ONE (07:19)
[2023-03-14] MEDS ORDERED: PHENYLEPHRINE HCL 10 MG/ML VIAL ONE (07:41)
[2023-03-14] MEDS ORDERED: ePHEDrine sulfate 50 MG/ML AMP ONE (07:41)
[2023-03-14] MEDS ORDERED: ALBUMIN HUMAN 5% 12.5 GM/250 ML VIAL IV ONE (08:01)
--- NOTE | 2023-03-14 08:33 | Post Operative Brief Note ---
Immediate Post Op Note v1 Date of Surgery March 14, 2023 Pre & Post Diagnosis Operation Date: 03/14/23 07:00 <No data on this case meets the specified criteria> I identified the patient and participated in the time-out.: Yes Procedure Operation Date: 03/14/23 07:00 <No data on this case meets the specified criteria> Surgeon Shivam Tolentino MD Sap Bods Developer Anya/Junior Estimated Blood Loss 75 Findings Consistent with Post-Op Diagnosis severe DJD
--- NOTE | 2023-03-14 08:37 | Operative Report ---
Post Operative Report Pre & Post Diagnosis Operation Date: 03/14/23 07:00 <No data on this case meets the specified criteria> I identified the patient and participated in the time-out.: Yes Procedure Operation Date: 03/14/23 07:00 <No data on this case meets the specified criteria> Surgeon Shivam Tolentino MD Radio Maintainer Anya/Junior Estimated Blood Loss 75 Findings Consistent with Post-Op Diagnosis Severe DJD with inverted labrum Fluids See anesthesia report. Had an episode of hypotension with junctional rhythm required management. Specimens Femoral head and acetabular reamings Drains None Complications None Indications Severe osteoarthritis of his left hip. Description of Procedure Preop diagnosis severe osteoarthritis left hip postop Diagnosis Same Surgeon Jose Alcazar, Radio Maintainer Anya no resident fail available second restaurant assistant is demented DEM ENT medical student Situation medically cleared male with intractable multi joint osteoarthritis. Has severe disease in both knees both hips and both shoulders. He has had both knees replaced this will be his second hip. He will need total shoulders bilaterally. He is a severe diabetic has been managed by his primary care doctor in fact we have canceled this procedure multiple times based on diabetic issues. Procedure patient phone advice I provide consent provide antibiotics for him to be given the left lower extremities prepped and draped in his routine fashion with the patient in a right lateral decubitus position. Posterior approach to the hip was made. Blunt dissection carried down to the IT band fascia and gluteus razia fascia this was then incised under direct vision. Retractor was placed protecting the sciatic nerve the short external rotators were released the capsule was teed the hip was dislocated the femoral neck resected. Acetabular exposure was good. There was significant inverted labrum. This was all resected. Serial reaming carried up to a 52 and 52 cup impacted into appropriate position. 6.5x25 screw was placed with excellent purchase. The trial liner was seated. The femur was then flexed and internally rotated proximal femur compared with a box toe buffer canal finder lateralizing rest and serial broaching up to a size 5 with a +15 he was slightly short but excellently stable. The hip was then dislocated with remaining trial and once removed the wound irrigated with Betadine and Pulsavac and the permanent hole in the receipt of the permanent liner seated +4 permanent stem and head seated +1.5 the leg lengths were excellent the hip was stable in all planes. The hip was then irrigated with Betadine Pulsavac and closed with #2 Vicryl for the capsule and in the short external rotators #2 Vicryl for the deep fascia IT band #2 Vicryl for the deep fascia 2-0 Vicryl for the superficial fat stays for posterior skin appropriate dressing applied the patient transferred recovery in satisfactory addition having tolerated the procedure well. Of note he did have that one episode of hypotension we will look good at the end. He was conversant no sign of any neurologic issues etc. He was saturating well. Summary of implants size 52 acetabular shell sector cup 25 x 6.5 screw hole and a jorge 52 liner +4 neutral 36x50 2+1.536 head and a high offset 5 femur. EBL was less than 75 cc crystalloid per anesthesia. Pathology pending on bone. DVT prophylaxis per protocol. I attest to the content of the Intraoperative Record and any orders documented therein. Any exceptions are noted below.
--- NOTE | 2023-03-14 08:39 | Operative Report ---
Post Operative Report Pre & Post Diagnosis Operation Date: 03/14/23 07:00 Pre-Op Diagnosis: Left Hip End Stage Degenerative Joint Disease Post-Op Diagnosis: Left Hip End Stage Degenerative Joint Disease I identified the patient and participated in the time-out.: Yes Procedure Operation Date: 03/14/23 07:00 Actual Procedures p Left Total Hip Arthroplasty(Left) - Shivam Tolentino MD Surgeon SAHIL Tolentino MD High Lighter Anya CERDA/Junior Estimated Blood Loss 75 Findings Consistent with Post-Op Diagnosis see operative report Specimens See operative report Drains none Complications none Disposition Accompanied Patient To Recovery: Yes Indications This 62 year old male presented to the office with complaints of persisting left hip pain. He had tried conservative care measures without improvement. He elected to proceed with surgical intervention after being educated about potential risks and outcomes. Preoperative imaging was obtained. Description of Procedure The patient was administered a spinal anesthetic and then taken to the operating room where he was given sedation. He was prepped and draped in the usual cathleen rile fashion. Please see Dr. Tolentino's operative report for specifics of the procedure. I was present for the entire case from initial patient positioning through final wound closure. Assistance was provided in tissue retraction, hemostasis, trial implant placement, final implant placement, and final wound closure. The patient was taken to the recovery room in satisfactory condition. I attest to the content of the Intraoperative Record and any orders documented therein. Any exceptions are noted below.
[2023-03-14] MEDS: fentaNYL citrate PF 100 MCG/2 ML VIAL IV PRN ×3 (08:44→09:02)
[2023-03-14] MEDS ORDERED: EPINEPHrine INJ 1 MG/ML AMP ONE (09:05)
[2023-03-14] MEDS ORDERED: VASOPRESSIN 20 UNIT/ML VIAL ONE (09:05)
[2023-03-14] MEDS ORDERED: GLYCOPYRROLATE 0.2 MG/ML VIAL ONE (09:05)
[2023-03-14] MEDS ORDERED: ATROPINE SULFATE 1MG/2.5ML SYR ONE (09:05)
--- NOTE | 2023-03-14 09:29 | XRay Report ---
XR pelvis 1-2V routine CLINICAL HISTORY: Postoperative evaluation. COMPARISON: Pelvis radiograph February 16, 2023. FINDINGS: Alignment of the total left hip arthroplasty is anatomic. There is no periprosthetic fract ure. No unexpected radiopaque foreign bodies. There are skin yasmin. Right hip arthroplasty is intac t. IMPRESSION: Expected findings following total left hip arthroplasty. ACT 112: Negative or not required by law. Electronically signed by: Ck Christiansen M.D. 03/14/2023 9:27 AM
[2023-03-14] MEDS ORDERED: PROMETHAZINE HCL INJ 25 MG/ML 1 ML VIAL ONE (09:41)
--- NOTE | 2023-03-14 09:44 | Anesthesiology Progress Note ---
Date of Service March 14, 2023 Anesthesia Post Procedure Vital Signs Vital Signs: Temp Pulse Pulse Pulse Resp BP BP 03/14/23 09:25 36.5 C 62 15 98/62 L 03/14/23 09:15 65 21 108/52 L 03/14/23 09:18 62 03/14/23 09:05 65 17 102/53 L 03/14/23 08:55 64 22 110/63 03/14/23 08:45 66 20 103/42 L 03/14/23 08:36 36.0 C L 68 18 107/65 03/14/23 05:56 36.9 C 77 20 149/96 H Pulse Ox O2 Del Method O2 Flow Rate 03/14/23 09:25 95 Room Air 03/14/23 09:15 98 Room Air 03/14/23 09:18 03/14/23 09:05 94 Room Air 03/14/23 08:55 100 Oxymask 6 03/14/23 08:45 100 Oxymask 6 03/14/23 08:36 100 Oxymask 6 03/14/23 05:56 95 Room Air Pain Intensity Bilateral Shoulder: Pain Intensity: 4 Transfer of Care Handoff Completed per policy Notes Mental Status: alert / awake / arousable and participated in evaluation Patient Amnestic to Procedure: Yes Nausea / Vomiting: adequately controlled Pain: adequately controlled Airway Patency, RR, SpO2: stable & adequate BP & HR: stable & adequate Hydration State: stable & adequate Neuraxial Anesthesia: was administered and sensory block is resolving Anesthetic Complications: no major complications apparent and Pt Satisfied with anesthetic care Notes: Intraoperatively, patient became increasing bradycardic, hypotensive and subsequently mildly hypoxic. We aggressively treated his blood pressure with both crystalloid and colloid IVF therapy. He was mildly responsive to phenylephrine, ephedrine and then vasopressin. Sedation was discontinued and he was jaw thrusted due to him obstructing. His bradycardia appeared to be due to what looked like a junctional rhythm (no obvious p waves noted but regular rhythm). HR did not respond to glyco and atropine so I did give a one time dose of 100mcg epinephrine. HR increased to mid 80's with now obvious P waves and SpO2 improved to mid to high 90's and BP increased. Patient had no further issues with his vital signs and his only complaint postop was shoulder pain 2/2 being in the lateral position (had shoulder pain prior to surgery and he states he needs surgery on both shoulders in the future). He was given a small dose of phenergen for nausea in PACU and he was sent to his room after his spinal dose had started to resolve (able to move lower extremities and sensory level decreased). Patient made aware of intraoperative events and all questions answered.
[2023-03-14] MEDS ORDERED: PROMETHAZINE HCL 6.25 MG in SODIUM CHLORIDE 0.9% 50 ML IV PRN (09:45)
[2023-03-14] MEDS ORDERED: VANCOMYCIN CONSULT ACTIVE PRN (10:15)
[2023-03-14] MEDS ORDERED: diphenhydrAMINE 50 MG/ML VIAL IV PRN (10:15)
[2023-03-14] MEDS ORDERED: MAGNESIUM HYDROXIDE SUSP 30 ML UDC PO PRN (10:15)
[2023-03-14] MEDS ORDERED: METOCLOPRAMIDE HCL INJ 5 MG/ML 2 ML VIAL IV PRN (10:15)
[2023-03-14] MEDS ORDERED: ALUMINUM/MAGNESIUM SUSP 30 ML UDC PO PRN (10:15)
[2023-03-14] MEDS ORDERED: HYDROmorphone INJ 0.5 MG/0.5 ML SYR IV PRN (10:15)
[2023-03-14] MEDS ORDERED: bisacodyL 10 MG SUPP PR PRN (10:15)
[2023-03-14] MEDS ORDERED: TAMSULOSIN HCL 0.4 MG CAP PO PRN (10:15)
[2023-03-14] MEDS ORDERED: PHARMACY GLYCEMIC MGMT CONSULT PRN (10:15)
[2023-03-14] MEDS ORDERED: CYCLOBENZAPRINE HCL 10 MG TAB PO PRN (10:15)
[2023-03-14] MEDS ORDERED: NALOXONE HCL 0.4 MG/1 ML VIAL/CARP IV PRN (10:15)
[2023-03-14] MEDS ORDERED: SODIUM CHLORIDE 0.9% 1000ML 1,000 ML IV SCH (10:45)
--- NOTE | 2023-03-14 10:52 | Orthopedic Progress Note ---
Date of Service March 14, 2023 Assessment & Plan Admission and Anticipated Discharge Date Admission Date: March 14, 2023 Subjective Status post left total replacement. Has done well postop. A transient episode of high hypotension during surgery attributed to likely pain medication. No definitive source. Physical Exam Physical Exam: Physical exam access assessment reveals wound dressing clean dry and intact neurovascular check limited by spinal. Postop x-rays look excellent. Results & Data Vital Signs (Past 12 Hours) Vital Signs Temp Pulse Pulse Pulse Resp BP BP 03/14/23 10:45 36.4 C L 64 14 123/67 03/14/23 10:37 03/14/23 10:15 36.4 C L 66 16 104/65 03/14/23 09:55 64 20 111/53 L 03/14/23 09:45 63 17 104/53 L 03/14/23 09:35 64 16 102/52 L 03/14/23 09:25 36.5 C 62 15 98/62 L 03/14/23 09:15 65 21 108/52 L 03/14/23 09:18 62 03/14/23 09:05 65 17 102/53 L 03/14/23 08:55 64 22 110/63 03/14/23 08:45 66 20 103/42 L 03/14/23 08:36 36.0 C L 68 18 107/65 03/14/23 05:56 36.9 C 77 20 149/96 H Pulse Ox O2 Del Method O2 Flow Rate 03/14/23 10:45 97 Nasal Cannula 2 03/14/23 10:37 Room Air 03/14/23 10:15 96 Room Air 03/14/23 09:55 100 Room Air 03/14/23 09:45 93 Room Air 03/14/23 09:35 93 Room Air 03/14/23 09:25 95 Room Air 03/14/23 09:15 98 Room Air 03/14/23 09:18 03/14/23 09:05 94 Room Air 03/14/23 08:55 100 Oxymask 6 03/14/23 08:45 100 Oxymask 6 03/14/23 08:36 100 Oxymask 6 03/14/23 05:56 95 Room Air Hip Pain Involved hip: left
--- NOTE | 2023-03-14 10:58 | Discharge Summary ---
Date of Service March 14, 2023 Admission HPI Per Admitting Provider Severe pain in both shoulders and left hip. Admission Exam Per Admitting Provider please see admit exam Principal Diagnosis Left hip osteoarthritis Discharge Exam Physical exam access assessment reveals wound dressing clean dry and intact neurovascular check limited by spinal. Postop x-rays look excellent. doind well. Discharge Data Allergies Allergy/AdvReac Type Severity Reaction Status Date / Time cephalexin Allergy Intermediate hives Verified 03/14/23 05:49 Vaccinations none Consultations none Procedures Performed Operation Date: 03/14/23 07:00 Actual Procedures p Left Total Hip Arthroplasty(Left) - Shivam Tolentino MD Diabetes Follow up With primary care doctor. Emphasized potential use of additional medication such as Ozempic Hospital Course (1) Knee arthropathy: continue with VTE prophylaxis/rehab Plan Home with services. Total Time Total Time Spent Total Time Spent (In Minutes): 15 minutes Discharge Plan Discharge Items Patient Disposition: Home - Self-Care Reason For Visit: Osteoarthritis Left Hip Discharge Diagnosis: Osteoarthritis left hip status post left total placement Condition on Discharge: Good Health Concerns: Diabetes Activity: As commented below Activity Comment: see routine post op orders Lifting: No more than 10 pounds and Wait until after follow-up appointment Lifting Comment: no lifting Bathing: Keep incision dry Bathing Comment: stay dry Sexual Activity: Wait until after follow-up appointment Exercise/Sports: Wait until after follow-up appointment Driving/Machine Use: Resume 3 days after discharge Weightbearing: Full weightbearing Non-emergency contact: Surgeon Call non-emergency contact if: you have any medication questions, your pain is not controlled, your temperature is above 101.5, your wound has increased redness, your wound has increased drainage and your wound pain has increased Follow-up/Referrals: Jose Munoz MD [Primary Care Provider] - Diet: Carb Consistent or DM2 Addtl Attending Provider Instructions: New Medicine: * You will likely be taking one or more of these medicines: 1. Percocet - Take, as directed, when you need it, every four to six hours to control your pain. 2. Iron Sulfate - Take three times each day for the month after surgery to help you replace the blood lost during surgery. 3. Eliquis - Thins your blood to lessen the chance of forming a blood clot. * The most common side effects of pain medicine and iron are nausea and constipation. If nausea or constipation is too much of a problem or if you have any questions about your new medicines or doses, call [facility] at . We will try to help you manage these issues. "VERY IMPORTANT TO READ AND REVIEW" Blood Clots and Blood Thinning Medicine: * You are given Eliquis during the immediate post-operative period to lessen the risk of blood clots forming in your legs and/or lungs. It is usually given for six weeks after surgery. Pain: * The immediate post-operative period after hip replacement surgery is often quite painful. * You are given a prescription for pain medicine. You should take it, as directed, when you need it, especially before physical therapy and before going to bed. Pain that interferes with sleep is very common and can last several months. * You will likely need pain medicine for the first two to four weeks. It will not stop all of the pain. The pain will lessen and as you feel better, you may change to milder pain medicine such as Tylenol. * The most common side effects of pain medicine are nausea and constipation, so don't take more than you need. Physical Therapy: * Follow the "Hip Precautions Instructions." * In some cases, the social sciences lecturer at the hospital will arrange to have a therapist come to your house for the first couple of weeks to help you learn these skills. * You need to practice on your own or with the help of a family member as needed. * When you learn these skills, most of the therapy can be done on your own. Home Exercise: * You were shown a series of exercises in the hospital. Do these exercises three to four times each day including the exercises you were shown in physical therapy. Walking: * Get up and walk several times each day. For the first four weeks, try not to stand or walk for more than one hour at a time. If you do stand or walk for more than one hour, you will not hurt anything, but your leg will likely swell. * As you feel comfortable, you may change from the walker or crutches to a cane and then to independent walking. SELF CARE INSTRUCTIONS AFTER TOTAL HIP REPLACEMENT Until the incision and soft tissues around your hip have healed, there is a possibility that the hip prosthesis could dislocate. A. Observe the following precautions to prevent dislocation: 1. Don't bend your hip greater than 90 degrees. 2. Avoid crossing your legs or ankles while standing or lying. 3. Sit with your feet placed 6 inches apart. 4. When sitting, keep your knees below your hips. Sit on a firm surface, avoid deep, soft chairs and couches. Use an elevated toilet seat in the bathroom. 5. Don't bend over at the waist. Use a long handled shoehorn and a sock aid to help you put on your shoes and socks. A esthetician permanent makeup artist can help you lemon picker objects that are too high or too low to reach. 6. Keep car riding to a minimum for at least one month after surgery. B. Your balance may be shaky for a while. Use crutches or a walker until directed by your doctor. C. Use hand rails when walking on stairs. D. Wear low heeled shoes with non-slip soles. E. Be sure that your floors are free of things that could trip you - throw rugs, electrical cords, small objects. Avoid wet and waxed floors, especially with crutches and canes. F. Try to walk several times a day with rest periods between. G. Continue with all the exercises taught to you in the hospital. Again, make walking a part of your daily routine. VERY IMPORTANT TO READ AND REVIEW A. Take Eliquis(blood thinning medication) as directed by your doctor. If you are on Coumadin, have a pro-time (blood test) drawn according to your doctor's instructions. B. There are a few signs you need to watch for after you are home. If you notice any of the followin. Increased severe hip pain. Some pain is expected especially when you exercise. 2. Increased swelling in your leg or knee; pain or swelling of the calf muscle in either lower leg. 3. Any fluid drainage from the incision. 4. Shortness of breath or chest pain. TEDs/Elastic Stockings: * The white elastic stockings help limit swelling and prevent blood clots from forming in your legs. The more you wear them, the more they work. * Wear them for six weeks. Prevention of Infection: * Take antibiotics one hour before any dental cleaning, dental work, urological procedure, gastrointestinal procedure or any invasive surgery in order to prevent your new joint from getting infected. * You may get the antibiotics from the doctor performing the procedure or we will call in a prescription to the pharmacy of your choice. Call the office for a prescription at least 2 days prior to your appointment. Things to Watch For: * Drainage from the incision site that occurs more than one week after your surgery. * Severely increased leg pain or swelling. * Increased redness at the incision site. * Fever above 101 degrees Fahrenheit. * Unusual chest pain or shortness of breath. * Unusual pain or burning with urination. Take your Eliquis 1 tablet 2 times a day for 6 weeks. Take it on Monday evening at home. Follow-up in the office in 2 weeks as scheduled for staple removal Use your walker when ambulating Leave the wound VAC in place for 1 week. Follow-up in the office next Monday for removal. Pending Studies at Discharge: Yes (Bone pathology) Studies:: Bone pathology Medications and DC Order Prescriptions: No Action hydrocodone-acetaminophen 7.5-300 mg Tablet 1 tab PO TID PRN (Reason: Pain) cyclobenzaprine 10 mg Tablet 10 mg PO TID PRN (Reason: Spasms) ascorbic acid (vitamin C) [Vitamin C] 1,000 mg Tablet 1,000 mg PO BID atorvastatin 20 mg Tablet 20 mg PO HS aspirin 81 mg Tablet,Delayed Release (Dr/Ec) 81 mg PO BID metformin 1,000 mg Tablet 1,000 mg PO BID hydrochlorothiazide 12.5 mg Capsule 12.5 mg PO QAM docusate sodium 100 mg Tablet 100 mg PO BID multivitamin Tablet 1 tab PO QAM omeprazole 20 mg Capsule,Delayed Release(Dr/Ec) 20 mg PO QAM zinc gluconate 50 mg Tablet 50 mg PO HS verapamil 240 mg Capsule,Ext Rel. Pellets 24 Hr 240 mg PO QAM benazepril 40 mg Tablet 40 mg PO QAM insulin glargine [Lantus U-100 Insulin] 100 unit/mL Solution 35 unit SUBCUT QAM Rx Instructions: took 17 units this morning gabapentin 400 mg Capsule 400 mg PO TID insulin aspart U-100 [Novolog FlexPen U-100 Insulin] 100 unit/mL (3 mL) Insulin Pen 20 unit SUBCUT TID Rx Instructions: dose might change pending his sugar celecoxib 200 mg Capsule 200 mg PO BID PRN (Reason: Pain) Discharge Orders: Discharge Order (Routine); Ordered 03/14/23 Ordered By: Shivam Tolentino Admission Data Admit Date/Time: 03/14/23 08:49 Attending Provider: Shivam Tolentino Admit Provider: Shivam Tolentino Primary Care Provider: Jose Munoz
[2023-03-14] MEDS ORDERED: CARBOHYDRATES FOR HYPOGLYCEMIA PO PRN (11:15)
[2023-03-14] MEDS ORDERED: GLUCAGON FOR INJ 1 MG VIAL IM PRN (11:15)
[2023-03-14] MEDS ORDERED: GLUCOSE 10 TAB/TUBE PO PRN (11:15)
[2023-03-14] MEDS ORDERED: GLUCOSE 40% GEL 15 GM TUBE PO PRN (11:15)
[2023-03-14] MEDS ORDERED: DEXTROSE 50% 50 ML SYRINGE IV PRN (11:15)
[2023-03-14] MEDS: DOCUSATE SODIUM 100 MG CAP PO SCH ×2 (11:21→20:45)
[2023-03-14] MEDS: MULTIVITAMIN TAB PO SCH (11:21)
[2023-03-14] MEDS: ENALAPRIL MALEATE 10 MG TAB PO SCH (11:21)
[2023-03-14] MEDS: ASPIRIN 81 MG ECTAB PO SCH ×2 (11:21→20:45)
[2023-03-14] MEDS: PANTOprazole 40 MG TAB PO SCH (11:21)
[2023-03-14] MEDS: hydroCHLOROthiazide 25 MG TAB PO SCH (11:21)
[2023-03-14] MEDS: VERAPAMIL HCL 240 MG TABCR PO SCH (11:22)
[2023-03-14] MEDS: KETOROLAC TROMETHAMINE 15 MG/ML VIAL IV SCH ×3 (11:22→22:01)
[2023-03-14] MEDS: INSULIN ASPART PER UNIT CHARGE SC SCH ×3 (12:34→20:43)
[2023-03-14] MEDS: oxyCODONE HCL IR 5 MG TAB (IMMEDIATE RELEASE) PO PRN ×2 (12:47→20:47)
--- NOTE | 2023-03-14 12:56 | Anesthesiology Progress Note ---
Date of Service March 14, 2023 Anesthesia Post Procedure Vital Signs Vital Signs: Temp Pulse Pulse Pulse Resp BP BP 03/14/23 12:13 36.4 C L 70 16 150/67 H 03/14/23 10:45 36.4 C L 64 14 123/67 03/14/23 11:15 36.5 C 65 16 137/74 03/14/23 10:37 03/14/23 10:15 36.4 C L 66 16 104/65 03/14/23 09:55 64 20 111/53 L 03/14/23 09:45 63 17 104/53 L 03/14/23 09:35 64 16 102/52 L 03/14/23 09:25 36.5 C 62 15 98/62 L 03/14/23 09:15 65 21 108/52 L 03/14/23 09:18 62 03/14/23 09:05 65 17 102/53 L 03/14/23 08:55 64 22 110/63 03/14/23 08:45 66 20 103/42 L 03/14/23 08:36 36.0 C L 68 18 107/65 03/14/23 05:56 36.9 C 77 20 149/96 H Pulse Ox O2 Del Method O2 Flow Rate 03/14/23 12:13 100 Nasal Cannula 2 03/14/23 10:45 97 Nasal Cannula 2 03/14/23 11:15 99 Nasal Cannula 2 03/14/23 10:37 Room Air 03/14/23 10:15 96 Room Air 03/14/23 09:55 100 Room Air 03/14/23 09:45 93 Room Air 03/14/23 09:35 93 Room Air 03/14/23 09:25 95 Room Air 03/14/23 09:15 98 Room Air 03/14/23 09:18 03/14/23 09:05 94 Room Air 03/14/23 08:55 100 Oxymask 6 03/14/23 08:45 100 Oxymask 6 03/14/23 08:36 100 Oxymask 6 03/14/23 05:56 95 Room Air Pain Intensity Bilateral Shoulder: Pain Intensity: 6 Transfer of Care Handoff Completed per policy Notes Mental Status: alert / awake / arousable and participated in evaluation Patient Amnestic to Procedure: Yes Nausea / Vomiting: adequately controlled Pain: adequately controlled Airway Patency, RR, SpO2: stable & adequate BP & HR: stable & adequate Hydration State: stable & adequate Neuraxial Anesthesia: was administered and sensory block is resolving Anesthetic Complications: no major complications apparent and Pt Satisfied with anesthetic care
[2023-03-14] MEDS: ACETAMINOPHEN 500 MG TAB PO SCH ×2 (12:59→22:01)
[2023-03-14] MEDS: GABAPENTIN 400 MG CAP PO SCH ×2 (12:59→20:45)
--- NOTE | 2023-03-14 13:49 | Pharmacy Report ---
Pharmacy Glycemic Short Note 2 - Date of Service March 14, 2023 - Glycemic Short BSG Results (Last 24 hours): 03/14/23 03/14/23 03/14/23 06:16 08:46 12:13 POC Glucose 161 H 205 H 218 H OUTPATIENT ANTIDIABETIC REGIMEN: * Lantus 35 units SQ daily * Novolog 20 units SQ TID * metformin 1gm PO BID HbA1C: 9.2% (02/16/23) ASSESSMENT: * Patient is a 62 year old male s/p left total hip replacement with a history of DM2. Pharmacy consulted to assist with glycemic management. * BSGs 205-218mg/dL pre and post op. Diet ordered. No steroids. * Received 17 units of Lantus this AM (1/2 of usual dose). Will scale basal star ting tonight based upon BSG. Novolog ACHS ~moderate stress scale. PLAN FOR INPATIENT GLYCEMIC CONTROL: * Hold outpatient oral diabetes medications * Basal insulin * Lantus scale BID depending on BSG (15 units if BSG less than 140mg/dl, 19 units if BSG 140-200mg/dl, 21 units if BSG 200mg/dL or greater) * Bolus insulin * NovoLog per scale ACHS or Q6hrs while NPO * Goal Range: Low 110 mg/dL - High 140 mg/dL * Correction Factor: 25 mg/dL/unit * Nutritional / Prandial insulin per carb ratio of 1 unit per 8 grams CHO consumed
--- NOTE | 2023-03-14 14:02 | Electrocardiogram Report ---
Test Reason : Blood Pressure : / mmHG Vent. Rate : 062 BPM Atrial Rate : 062 BPM P-R Int : 170 ms QRS Dur : 094 ms QT Int : 430 ms P-R-T Axes : 038 001 024 degrees QTc Int : 436 ms Normal sinus rhythm Normal ECG When compared with ECG of 16-FEB-2023 15:37, No significant change was found Confirmed by Hema Sullivan [id number]) on 03/14/2023 2:01:38 PM Referred By: Shivam Tolentino Confirmed By:Hema Sullivan
--- NOTE | 2023-03-14 14:28 | Operative Report (OR) ---
ADDENDUM PREOPERATIVE DIAGNOSIS: Osteoarthritis, left hip. POSTOPERATIVE DIAGNOSIS: Osteoarthritis, left hip. OPERATION PERFORMED: Noncemented left total hip replacement. Please see the entire other operative report that is in the chart that was dictated under the [employer] system. Everything is in that note. Job ID: [id number]
[2023-03-14] MEDS ORDERED: TRANEXAMIC ACID / 0.7% NACL 1,000 MG/100 ML BAG IV SCH (14:45)
[2023-03-14] MEDS: ASCORBIC ACID 500 MG TAB PO SCH (16:49)
[2023-03-14] MEDS: FERROUS GLUCONATE 324 MG TAB PO SCH (16:50)
[2023-03-14] MEDS: NYSTATIN CR 15 GM TUBE EXT SCH (20:45)
[2023-03-14] MEDS ORDERED: ATORVASTATIN 20 MG TAB PO SCH (21:00)
[2023-03-14] MEDS ORDERED: LANTUS PER UNIT CHARGE SC SCH (21:00)
[2023-03-14] MEDS ORDERED: NON-FORMULARY MEDICATION (Zinc Gluconate 50 mg Tablet) PO SCH (21:00)
[2023-03-14] MEDS ORDERED: SENNA 8.6 MG TAB PO SCH (21:00)
[2023-03-15] MEDS ORDERED: INSULIN ASPART PER UNIT CHARGE SC SCH
[2023-03-15] MEDS: oxyCODONE HCL IR 5 MG TAB (IMMEDIATE RELEASE) PO PRN ×2 (01:50→08:28)
[2023-03-15] MEDS ORDERED: INSULIN ASPART PER UNIT CHARGE SC ONE (04:00)
[2023-03-15] MEDS: KETOROLAC TROMETHAMINE 15 MG/ML VIAL IV SCH (04:38)
[2023-03-15] MEDS: ACETAMINOPHEN 500 MG TAB PO SCH (04:39)
--- NOTE | 2023-03-15 06:41 | Orthopedic Progress Note ---
Date of Service March 15, 2023 Assessment & Plan (1) Knee arthropathy: Plan: continue with VTE prophylaxis/rehab Plan Home with services. Admission and Anticipated Discharge Date Admission Date: March 14, 2023 Subjective Status post left total replacement. Has done well postop. A transient episode of high hypotension during surgery attributed to likely pain medication. No definitive source. He did well overnight denies chest pain shortness of breath fever chills nausea vomiting or headache. He is up and about. He is walking the cabrera already this morning. Wound dressing clean dry. Review of Systems Neurologic: Neurovascular check reveals intact sciatic and femoral nerves. The hip is located range of motion supple pain-free. Balance is good. Uses walker well. Physical Exam Physical Exam: Physical exam access assessment reveals wound dressing clean dry and intact neurovascular check limited by spinal. Postop x-rays look excellent. doind well. Results & Data Vital Signs (Past 12 Hours) Vital Signs Temp Pulse Resp BP Pulse Ox O2 Del Method 03/15/23 03:53 37 C 90 18 137/77 94 Room Air 03/14/23 22:48 36.9 C 88 18 136/80 99 Room Air 03/14/23 21:30 Room Air 03/14/23 19:49 36.8 C 89 18 176/84 H 97 Room Air Diagnostic Findings X-rays look good.
[2023-03-15] MEDS ORDERED: KETOROLAC TROMETHAMINE 15 MG/ML VIAL IV ONE ×2 (06:42→10:30)
[2023-03-15] MEDS: VERAPAMIL HCL 240 MG TABCR PO SCH (07:34)
[2023-03-15] MEDS: MULTIVITAMIN TAB PO SCH (07:35)
[2023-03-15] MEDS: GABAPENTIN 400 MG CAP PO SCH (07:35)
[2023-03-15] MEDS: ASCORBIC ACID 500 MG TAB PO SCH (07:36)
[2023-03-15] MEDS: ENALAPRIL MALEATE 10 MG TAB PO SCH (07:36)
[2023-03-15] MEDS: FERROUS GLUCONATE 324 MG TAB PO SCH (07:36)
[2023-03-15] MEDS: ASPIRIN 81 MG ECTAB PO SCH (07:36)
[2023-03-15] MEDS: DOCUSATE SODIUM 100 MG CAP PO SCH (07:36)
[2023-03-15] MEDS: hydroCHLOROthiazide 25 MG TAB PO SCH (07:37)
[2023-03-15] MEDS: PANTOprazole 40 MG TAB PO SCH (07:37)
[2023-03-15] MEDS: NYSTATIN CR 15 GM TUBE EXT SCH (07:37)
[2023-03-15 08:06] LABS: Basophils # (auto) 0.03 K/uL (0-0.2); Basophils % (auto) 0.3 %; Eosinophils # (auto) 0.16 K/uL (0-0.50); Eosinophils % (auto) 1.8 %; Hematocrit (blood only) 35.4 % (42.0-52.0); Hemoglobin 11.8 g/dl (14.0-18.0); Immature Granulocytes # (auto) 0.02 K/uL (0.01-0.20); Immature Granulocytes % (auto) 0.2 %; Lymphocytes # (auto) 1.64 K/uL (1.2-3.4); Lymphocytes % (auto) 18.4 %; Mean Corpuscular Hemoglobin 30.4 pg (25.0-34.0); Mean Corpuscular Hgb Conc 33.3 g/dL (32.0-36.0); Mean Corpuscular Volume 91.2 fL (80.0-100.0); Monocytes # (auto) 0.82 K/uL (0.11-0.59); Monocytes % (auto) 9.2 %; Neutrophils # (auto) 6.24 K/uL (1.40-6.50); Neutrophils % (auto) 70.1 %; Platelet Count 195 K/uL (130-400); RDW Coefficient of Variation 13.3 % (11.5-14.5); RDW Standard Deviation 44.3 fL (36.4-46.3); Red Blood Count 3.88 M/uL (4.70-6.10); White Blood Count 8.91 K/ul (4.8-10.8)
[2023-03-15 08:23] LABS: Calcium 8.2 mg/dl (8.6-10.3); Potassium 4.5 mmol/L (3.5-5.1)
[2023-03-15] MEDS: INSULIN ASPART PER UNIT CHARGE SC SCH (08:24)
[2023-03-15 08:29] LABS: BUN Creatinine Ratio 21.7 (10-20); Creatinine Clr Calc Pharmacy 72.6 ml/min; Est GFR (African American) 62.6 ml/min
[2023-03-15] MEDS ORDERED: APIXABAN 2.5 MG TAB PO SCH (09:00)
[2023-03-15] MEDS ORDERED: LANTUS PER UNIT CHARGE SC SCH (09:00)
--- NOTE | 2023-03-15 10:27 | Orthopedic Progress Note ---
Date of Service March 15, 2023 Assessment & Plan (1) S/P total hip arthroplasty: Plan: POD 1 - left total hip arthroplasty Ice PRN Keep prevena in place. Teds/SCD and Eliquis for DVT prophylaxis. WBAT LLE Posterior hip precautions at all times Use walker to assist with ambulation Discharge to Home with outpatient PT today Discharge instructions reviewed. Follow up as scheduled. Admission and Anticipated Discharge Date Admission Date: March 14, 2023 Subjective Patient doing well, ambulating in hallway. No complaints of pain in left hip although when sleeping. Tolerating a regular diet. Physical Exam Musculoskeletal: left hip incision clean, dry and intact. Post op dressings removed, prevena wound vac applied. No surrounding erythema, edema, seroma or hematoma. Distal N/V function intact. Results & Data Vital Signs (Past 12 Hours) Vital Signs Temp Pulse Resp BP Pulse Ox O2 Del Method 03/15/23 08:18 37.3 C 89 18 137/78 95 03/15/23 08:00 Room Air 03/15/23 07:00 37.3 C 89 18 137/78 95 Room Air 03/15/23 03:53 37 C 90 18 137/77 94 Room Air 03/14/23 22:48 36.9 C 88 18 136/80 99 Room Air Laboratory Results 03/15/23 03/15/23 03/15/23 Range/Units 07:48 07:48 06:41 WBC 8.91 (4.8-10.8) K/ul RBC 3.88 L (4.70-6.10) M/uL Hgb 11.8 L (14.0-18.0) g/dl Hct 35.4 L (42.0-52.0) % MCV 91.2 (80.0-100.0) fL MCH 30.4 (25.0-34.0) pg MCHC 33.3 (32.0-36.0) g/dL RDW Std Deviation 44.3 (36.4-46.3) fL RDW Coeff of Alver[place] 13.3 (11.5-14.5) % Plt Count 195 (130-400) K/uL MPV 10.0 (9.4-12.4) fL Immature Gran % (Auto) 0.2 % Neut % (Auto) 70.1 % Lymph % (Auto) 18.4 % [place] % (Auto) 9.2 % Eos % (Auto) 1.8 % Baso % (Auto) 0.3 % Neut # (Auto) 6.24 (1.40-6.50) K/uL Lymph # (Auto) 1.64 (1.2-3.4) K/uL [place] # (Auto) 0.82 H (0.11-0.59) K/uL Eos # (Auto) 0.16 (0-0.50) K/uL Baso # (Auto) 0.03 (0-0.2) K/uL Immature Gran # (Auto) 0.02 (0.01-0.20) K/uL Sodium 137 (136-145) mmol/L Potassium 4.5 (3.5-5.1) mmol/L Chloride 103 (98-107) mmol/L Carbon Dioxide 27 (21-32) mmol/L Anion Gap 7 (3-11) BUN 30 H (6-23) mg/dl Creatinine 1.38 (0.6-1.4) mg/dl Est Cr Clr Drug Dosing 72.6 ml/min Est GFR ( Amer) 62.6 ml/min Est GFR (Non-Af Amer) 54.0 ml/min BUN/Creatinine Ratio 21.7 H (10-20) Glucose 194 H (70-99(Fasting)) mg/dl POC Glucose 172 H (70-99) mg/dl Calcium 8.2 L (8.6-10.3) mg/dl 03/15/23 03/14/23 03/14/23 Range/Units 03:52 20:30 17:16 WBC (4.8-10.8) K/ul RBC (4.70-6.10) M/uL Hgb (14.0-18.0) g/dl Hct (42.0-52.0) % MCV (80.0-100.0) fL MCH (25.0-34.0) pg MCHC (32.0-36.0) g/dL RDW Std Deviation (36.4-46.3) fL RDW Coeff of Alverto (11.5-14.5) % Plt Count (130-400) K/uL MPV (9.4-12.4) fL Immature Gran % (Auto) % Neut % (Auto) % Lymph % (Auto) % [place] % (Auto) % Eos % (Auto) % Baso % (Auto) % Neut # (Auto) (1.40-6.50) K/uL Lymph # (Auto) (1.2-3.4) K/uL [place] # (Auto) (0.11-0.59) K/uL Eos # (Auto) (0-0.50) K/uL Baso # (Auto) (0-0.2) K/uL Immature Gran # (Auto) (0.01-0.20) K/uL Sodium (136-145) mmol/L Potassium (3.5-5.1) mmol/L Chloride (98-107) mmol/L Carbon Dioxide (21-32) mmol/L Anion Gap (3-11) BUN (6-23) mg/dl Creatinine (0.6-1.4) mg/dl Est Cr Clr Drug Dosing ml/min Est GFR ( Amer) ml/min Est GFR (Non-Af Amer) ml/min BUN/Creatinine Ratio (10-20) Glucose (70-99(Fasting)) mg/dl POC Glucose 218 H 192 H 218 H (70-99) mg/dl Calcium (8.6-10.3) mg/dl 03/14/23 Range/Units 12:13 WBC (4.8-10.8) K/ul RBC (4.70-6.10) M/uL Hgb (14.0-18.0) g/dl Hct (42.0-52.0) % MCV (80.0-100.0) fL MCH (25.0-34.0) pg MCHC (32.0-36.0) g/dL RDW Std Deviation (36.4-46.3) fL RDW Coeff of [place]ver[place] (11.5-14.5) % Plt Count (130-400) K/uL MPV (9.4-12.4) fL Immature Gran % (Auto) % Neut % (Auto) % Lymph % (Auto) % [place] % (Auto) % Eos % (Auto) % Baso % (Auto) % Neut # (Auto) (1.40-6.50) K/uL Lymph # (Auto) (1.2-3.4) K/uL [place] # (Auto) (0.11-0.59) K/uL Eos # (Auto) (0-0.50) K/uL Baso # (Auto) (0-0.2) K/uL Immature Gran # (Auto) (0.01-0.20) K/uL Sodium (136-145) mmol/L Potassium (3.5-5.1) mmol/L Chloride (98-107) mmol/L Carbon Dioxide (21-32) mmol/L Anion Gap (3-11) BUN (6-23) mg/dl Creatinine (0.6-1.4) mg/dl Est Cr Clr Drug Dosing ml/min Est GFR ( Amer) ml/min Est GFR (Non-Af Amer) ml/min BUN/Creatinine Ratio (10-20) Glucose (70-99(Fasting)) mg/dl POC Glucose 218 H (70-99) mg/dl Calcium (8.6-10.3) mg/dl
== END 2023-03-15 11:00 | disposition home or self-care (01) ==
LOC: ASU 05:20 → 3E 05:20